=== PATIENT | male | born 1975 | race African-American/Black ===

== ENCOUNTER 2016-11-09 00:51 | Emergency (ER) | payer MEDICAID ==
[~2016-11-09] VITALS: Ht 180.3 cm; Wt 100.0 kg
[2016-11-09] MEDS ORDERED: MORPHINE SULFATE 4 MG/ML CPJ (NOT FOR IM USE) IV STA (01:01)
[2016-11-09] MEDS ORDERED: ONDANSETRON HCL 4MG/2ML VIAL IV STA (01:01)
[2016-11-09] MEDS ORDERED: SODIUM CHLORIDE 0.9% 1000ML BAG (SEPSIS BOLUS) IV ONE (01:15)
[2016-11-09] MEDS ORDERED: NITROGLYCERIN OINT 1GM/INCH UDPKT TD ONE (01:15)
[2016-11-09] MEDS ORDERED: CEFTRIAXONE 1 G PREMIX 50 ML IV ONE (01:15)
[2016-11-09] MEDS ORDERED: ASPIRIN 81MG TABLET PO ONE (01:15)
[2016-11-09] MEDS ORDERED: AZITHROMYCIN 500 MG in DEXT 5% WATER 250 ML IV ONE (01:15)
[2016-11-09 01:49] LABS: BASOPHILS % 0.6 % (0.0-2.0); EOSINOPHILS % 0.2 % (0.0-5.0); HEMATOCRIT. 35.9 % (42.0-52.0); HEMOGLOBIN. 12.1 g/dL (14.0-18.0); LYMPHOCYTES % 11.5 % (20.0-50.0); MEAN CORPUSCULAR HEMOGLOBIN 25.8 pg (28.0-32.0); MEAN CORPUSCULAR VOLUME 76.7 fL (80.0-94.0); MEAN PLATELET VOLUME 8.3 fl (7.4-10.4); MONOCYTES % 2.7 % (2.0-8.0); PLATELET 349 x1000/uL (130-400); RED BLOOD CELL COUNT 4.68 mill/uL (4.7-6.1); RED CELL DISTRIBUTION WIDTH 14.7 % (11.6-14.6)
[2016-11-09 01:50] LABS: BG BASE EXCESS 2.6 mmol/L (-2.0-2.0); BG DEOXYHEMOGLOBIN 2.3 % (0.0-5.0); BG FRACTION INSPIRED OXYGEN 21; BG METHEMOGLOBIN 0.4 % (0.0-1.5); BG OXYGEN SATURATION 97.6 % (92.0-98.5); BG OXYHEMOGLOBIN 95.3 % (94.0-97.0); BG PCO2 21.4 mmHg (35.0-45.0); BG PH 7.629 (7.350-7.450); BG SAMPLE SITE RIGHT RADIAL; BG TOTAL HEMOGLOBIN 12.9 g/dL (12.0-18.0); BG VENT MODE ROOM AIR
[2016-11-09 01:56] LABS: D-DIMER 1.18 mg/L FEU (<0.50); INR 1.2
[2016-11-09 02:05] LABS: ETHANOL BLOOD < 10 mg/dL
[2016-11-09 02:31] LABS: CARBON DIOXIDE 24 mEq/L (21-32); CHLORIDE 97 mEq/L (98-107); TROPONIN I < 0.02 ng/mL (0.00-0.04)
[2016-11-09] MEDS ORDERED: KETOROLAC 30MG/ML VIAL IV NR (02:38)
[2016-11-09] MEDS ORDERED: POTASSIUM BICARB/CIT ACID 25 MEQ TABLET.EFF PO NR (02:45)
[2016-11-09] MEDS ORDERED: ACETAMINOPHEN 650MG SUPP PR NR (02:45)
[2016-11-09] MEDS ORDERED: ACETAMINOPHEN 325MG TABLET PO NR (04:45)
[2016-11-09] MEDS ORDERED: SODIUM CHLORIDE 0.9% 1,000 ML IV NR (05:24)
[2016-11-09] MEDS ORDERED: INSULIN REGULAR HUMAN 100 UNITS/ML 10ML VIAL IV ONE (06:00)
[2016-11-09 06:44] VITALS: BP 95/57
[2016-11-09 07:03] LABS: CLARITY URINE CLEAR (CLEAR); COLOR URINE DARK YELLOW (YELLOW); GLUCOSE URINE 3+ (NEGATIVE); KETONES URINE 4+ (NEGATIVE); LEUKOCYTE ESTERASE URINE 2+ (NEGATIVE); NITRITE URINE POSITIVE (NEGATIVE); OCCULT BLOOD URINE TRACE (NEGATIVE); PH URINE 6.5 (4.5-8.0); PROTEIN URINE 1+ (NEGATIVE); SPECIFIC GRAVITY URINE 1.025 (1.005-1.030)
[2016-11-09 07:34] LABS: *AMPHETAMINES SCREEN URINE NEGATIVE (NEGATIVE); *BARBITURATES SCREEN URINE NEGATIVE (NEGATIVE); *BENZODIAZEPINES SCREEN URINE NEGATIVE (NEGATIVE); *COCAINE SCREEN URINE NEGATIVE (NEGATIVE); CANNABINOID URINE SCREEN PRESUMTIVE POSITIVE (NEGATIVE); METHADONE URINE SCREEN NEGATIVE (NEGATIVE); OPIATES URINE SCREEN PRESUMTIVE POSITIVE (NEGATIVE); PHENCYCLIDINE URINE SCREEN NEGATIVE (NEGATIVE)
== END 2016-11-09 07:13 | disposition left against medical advice (07) ==
LOC: ER 00:51 → EDBEDREQSVC 05:50 → EDBEDREQ 05:50 → ENRESERV 07:07 → ER 07:13 → CANBEDREQ 10:34
DX: R07.9 Chest pain, unspecified (principal); R50.9 Fever, unspecified; E11.9 Type 2 diabetes mellitus without complications; H54.0 Blindness, both eyes; E78.00 Pure hypercholesterolemia, unspecified
CPT/HCPCS: 36415; 36600; 71010; 74176; 80053; 80305; 81001; 82375; 82805; 82962; 83605; 83690; 83880; 84484; 85025; 85379; 85610; 87040; 87077; 87086; 93005; 96361; 96365; 96367; 96375; 99285; G0482; J0456; J0696; J1815; J1885; J2270; J2405; J7030; Z7610; J7060

== ENCOUNTER 2016-11-18 01:16 | Emergency (ER) | payer MEDICAID ==
[~2016-11-18] VITALS: Ht 172.7 cm; Wt 99.8 kg
[2016-11-18] MEDS ORDERED: KETOROLAC 30MG/ML VIAL IV STA (02:01)
[2016-11-18] MEDS ORDERED: LORAZEPAM 2MG/ML CPJ IV ONE (02:15)
[2016-11-18 02:47] LABS: BASOPHILS % 0.9 % (0.0-2.0); CARBON DIOXIDE 30 mEq/L (21-32); CHLORIDE 98 mEq/L (98-107); EOSINOPHILS % 0.7 % (0.0-5.0); HEMATOCRIT. 32.6 % (42.0-52.0); HEMOGLOBIN. 10.7 g/dL (14.0-18.0); LYMPHOCYTES % 18.6 % (20.0-50.0); MEAN CORPUSCULAR HEMOGLOBIN 25.4 pg (28.0-32.0); MEAN CORPUSCULAR VOLUME 77.5 fL (80.0-94.0); NEUTROPHILS % 74.8 % (40.0-76.0); PLATELET 461 x1000/uL (130-400); RED BLOOD CELL COUNT 4.21 mill/uL (4.7-6.1); RED CELL DISTRIBUTION WIDTH 15.1 % (11.6-14.6); TROPONIN I < 0.02 ng/mL (0.00-0.04)
[2016-11-18] MEDS ORDERED: SODIUM CHLORIDE 0.9% 1,000 ML IV ONE (03:55)
[2016-11-18 05:36] VITALS: BP 134/79
== END 2016-11-18 05:50 | disposition home or self-care (01) ==
LOC: ER 01:29
DX: M75.92 Shoulder lesion, unspecified, left shoulder (principal); E11.65 Type 2 diabetes mellitus with hyperglycemia; K59.00 Constipation, unspecified; I51.9 Heart disease, unspecified
CPT/HCPCS: 36415; 71010; 73030; 80053; 82962; 84484; 85025; 93005; 96361; 96374; 96375; 99285; J1885; J2060; J7030; Z7610